=== PATIENT | female | born 1940 | race Caucasian/White ===

== ENCOUNTER 2025-09-15 20:42 | Emergency (ER) | payer OTHER ==
[~2025-09-15] VITALS: Ht 162.6 cm; Wt 63.5 kg
[2025-09-15] MEDS ORDERED: oxyCODONE/APAP (5/325 MG) 1 UDTAB TABLET ONE (23:22)
[2025-09-15] MEDS: oxyCODONE/APAP (5/325 MG) 1 UDTAB TABLET PO ONE (23:22)
[2025-09-16 00:50] VITALS: BP 124/70; TEMP 98.3; O2SAT 95
== END 2025-09-16 00:51 | disposition home or self-care (01) ==
LOC: ER 20:53
DX: S63.501A Unspecified sprain of right wrist, initial encounter (principal); S00.83XA Contusion of other part of head, initial encounter; Z88.6 Allergy status to analgesic agent; W01.0XXA Fall on same level from slipping, tripping and stumbling without subsequent striking against object, initial encounter; Y93.89 Activity, other specified; Y92.481 Parking lot as the place of occurrence of the external cause; Y99.9 Unspecified external cause status
CPT/HCPCS: 70450-TC; 70486-TC; 71250-TC; 72125-TC; 73110